=== PATIENT | female | born 1995 | race American Indian/Alaskan Native ===

== ENCOUNTER 2019-09-09 02:03 | Inpatient (IN) | payer MEDICAID ==
[2019-09-09] MEDS ORDERED: fentaNYL 100 MCG/2 ML INJ IV PRN (03:16)
[2019-09-09] MEDS ORDERED: TERBUTALINE 1 MG/1 ML INJ SUB-Q PRN (03:16)
[2019-09-09] MEDS ORDERED: TERBUTALINE 1 MG/1 ML INJ IVP PRN (03:16)
[2019-09-09] MEDS ORDERED: ePHEDrine SULFATE 50 MG/1 ML INJ IV PRN ×2 (03:16→08:36)
[2019-09-09] MEDS ORDERED: LIDOCAINE (2%) 20 MG/1 ML VIAL 20 ML MDV INFILTRATI ONE (03:16)
[2019-09-09] MEDS ORDERED: BUTORPHANOL 2 MG/1 ML INJ IV PRN (03:16)
[2019-09-09] MEDS ORDERED: OXYTOCIN 20 UNIT/1000ML DRIP 20 UNITS/1,000 ML BAG IV SCH (04:00)
[2019-09-09] MEDS ORDERED: OXYTOCIN DRIP 30 UNITS/500 ML BAG IV SCH (04:00)
[2019-09-09 04:27] LABS: Hematocrit 34.1 % (30.3-42.9); Hemoglobin 11.3 gm/dl (10.1-14.3); Mean Corpuscular HGB Conc 33 % (30-34); Mean Corpuscular Volume 74 fl (79-97); Platelet Count 203 K/mm3 (140-440); Red Blood Count 4.62 M/mm3 (3.65-5.03); Red Cell Distribution Width 17.3 % (13.2-15.2)
[2019-09-09] MEDS: LACTATED RINGERS 1,000 ML IV SCH ×2 (04:28→12:56)
[2019-09-09] MEDS ORDERED: NALOXONE 2 MG/2 ML INJ IV PRN (08:36)
--- NOTE | 2019-09-09 08:37 | Anesthesia Consultation ---
Anesthesia Consult and Med Hx Date of service: 09/09/19 - Airway Anesthetic Teeth Evaluation: Good ROM Head & Neck: Adequate Mental/Hyoid Distance: Adequate Mallampati Class: Class II Intubation Access Assessment: Probably Good - Pulmonary Exam CTA: Yes - Cardiac Exam Cardiac Exam: RRR - Pre-Operative Health Status ASA Pre-Surgery Classification: ASA2 Proposed Anesthetic Plan: Epidural - Pulmonary Hx Asthma: Yes COPD: No Hx Pneumonia: No - Cardiovascular System Hx Hypertension: No - Central Nervous System Hx Seizures: No Hx Psychiatric Problems: No - Endocrine Hx Renal Disease: No Hx End Stage Renal Disease: No Hx Hypothyroidism: No Hx Hyperthyroidism: No - Hematic Hx Anemia: No Hx Sickle Cell Disease: No - Other Systems Hx Alcohol Use: No
--- NOTE | 2019-09-09 08:38 | Progress Note ---
Labor Epidural - Labor Epidural Start Time: 08:26 Stop Time: :29 Performed by:: LINK EL Procedure: Patient is requesting epidural for labor pain. H&P, and labs reviewed. Procedure explained, questions answered, consent obtained. Patient in sitting position with blood pressure cuff and pulse ox on and working. Timeout performed immediately before start of procedure. Sterile betadine prep/drape. 3 mL 1% lidocaine skin wheal at L[3]-L[4]. 18-gauge Touhy epidural needle advanced to [id number] with saline at 5 cm. 27-gauge spinal needle advanced until clear, free-flowing CSF. Intrathecal dexmedetomidine [10] mcg administered and needle removed. Epidural catheter advanced to 10 cm, negative aspiration for blood and csf, negative test dose 3 ml 1.5% lidocaine with epinephrine. Sterile steri-strips and tegaderm applied, followed by tape reinforcement. Patient tolerated procedure well.
[2019-09-09] MEDS ORDERED: fentaNYL-BUPIV 2 MCG/ML-0.125% 200 MCG/100 ML BAG EPIDURAL SCH (09:00)
--- NOTE | 2019-09-09 10:26 | History and Physical Report ---
History of Present Illness Date of examination: 09/09/19 Date of admission: 09/09/19 03:16 Chief complaint: My water broke at 12:00AM this morning History of present illness: Early entry to care at [facility], course complicated by +Chlamydia (treated), Anemia (taking FeSO4), hx of Hep. C (co-managed with Dr. Jensen: antibody false positive results); hx of cardiac murmur (evaluated by Cardiology); also co-managed with [facility]; RH Negative (Rhogam on 07/01/2019); +influenza (04/30/2019: Tamiflu). Past History Past Medical History: heart disease (cardiac murmur) [employer] History: chlamydia, hepatitis C Family/Genetic History: diabetes Social history: no significant social history, single - Obstetrical History Expected Date of Delivery: 09/04/19 Actual Gestation: 40 Week(s) 5 Day(s) : 2 Spontaneous Abortions: 1 Medications and Allergies Allergies Allergy/AdvReac Type Severity Reaction Status Date / Time No Known Allergies Allergy Unverified 09/09/19 03:16 Active Meds: Active Medications Butorphanol Tartrate (Stadol) 2 mg IV Q2H PRN PRN Reason: Pain , Severe (7-10) Last Admin: 09/09/19 03:57 Dose: 2 mg Documented by: Ephedrine Sulfate (Ephedrine Sulfate) 10 mg IV Q2M PRN PRN Reason: Hypotension Fentanyl (Sublimaze) 100 mcg IV Q2H PRN PRN Reason: Pain,Severe (7-10) LABOR PAIN Last Admin: 09/09/19 06:14 Dose: 100 mcg Documented by: Oxytocin/Sodium Chloride (Pitocin/Ns 20 Unit/1000ml Drip) 20 units in 1,000 mls @ 125 mls/hr IV DIRECT VERO Oxytocin/Sodium Chloride (Pitocin/Ns 30 Unit/500ml) 30 units in 500 mls @ 1 mls/hr IV TITR VERO; Protocol Last Titration: 09/09/19 08:45 Dose: 0 ml/hr, 0 mls/hr Documented by: Lactated Ringer's (Lactated Ringers) 1,000 mls @ 125 mls/hr IV DIRECT VERO Last Admin: 09/09/19 04:28 Dose: 125 mls/hr Documented by: Fentanyl/Bupivacaine/Sodium Chlor (Fentanyl-Bupiv 2 Mcg/Ml-0.125%) 200 mcg in 100 mls @ 12 mls/hr EPIDURAL TITR VERO; Protocol Last Admin: 09/09/19 09:55 Dose: 12 mls/hr Documented by: Mineral Oil (Mineral Oil) 30 ml PO QHS PRN PRN Reason: Constipation Naloxone HCl (Naloxone) 0.2 mg IV Q5M PRN PRN Reason: Respiratory sedation Terbutaline Sulfate (Brethine) 0.25 mg SUB-Q ONCE PRN PRN Reason: Hyperstimulation/Hypertonicity Terbutaline Sulfate (Brethine) 0.25 mg IVP ONCE PRN PRN Reason: Hyperstimulation/Hypertonicity Review of Systems All systems: negative - Vital Signs Vital signs: Vital Signs Pulse BP 95 H 118/56 09/09/19 04:41 09/09/19 04:41 Temp Pulse Resp BP Pulse Ox 97.8 F 89 18 113/55 100 09/09/19 07:00 09/09/19 10:14 09/09/19 05:03 09/09/19 10:09 09/09/19 10:14 - Physical Exam Breasts: Positive: normal Cardiovascular: Regular rate Lungs: Positive: Clear to auscultation, Normal air movement Abdomen: Positive: normal appearance, soft, normal bowel sounds Genitourinary (Female): Positive: normal external genitalia, normal perenium Vagina: Positive: other (Leaking fluid) Uterus: Positive: enlarged Anus/Rectum: Positive: normal perianal skin - Obstetrical FHR: category 1 FHR comments: FHR: 146, decreased varability, -accels, -decels Uterine Contraction Monitor Mode: Internal Cervical Dilatation: 6 (vtx, leaking a moderate amount of thin meconium stained fluids) Cervical Effacement Percentage: 70 station: -2 Uterine Contraction Frequency (min): 3-5 Uterine Contraction Pattern: Regular Uterine Tone Measurement Phase: Resting Uterine Contraction Intensity: Moderate Results Result Diagrams: 09/09/19 03:36 Abnormal lab results 09/09/19 Range/Units 03:36 MCV 74 L (79-97) fl MCH 25 L (28-32) pg RDW 17.3 H (13.2-15.2) % All other labs normal. Assessment and Plan A: IUP @ 40 5/7 Weeks Category I Tracing SROM Hx of Hep. C Meconium Stained Fluids GBS Negative P: Admit to L&D per Routine Orders Internals x 2 Placed Re-start Pitocin Augmentation when FHTs become more reactive Multiple Maternal Position Changes
[2019-09-09] MEDS: MINERAL OIL 30 ML ORAL LIQD PO PRN ×2 (14:53→16:52)
--- NOTE | 2019-09-09 16:02 | Procedure Note ---
OB Delivery Note - Delivery Date of Delivery: 09/09/19 (1524) Surgeon: JOSE MANUEL OCHOA Estimated blood loss: 300cc - Vaginal Delivery presentation: vertex Delivery position: OA Intrapartum events: meconium Delivery induction: oxytocin Delivery augmentation: pitocin Delivery monitor: internal FHT, internal uterine Route of delivery: Delivery placenta: spontaneous Delivery cord: 3 umbilical vessels Episiotomy: none Delivery laceration: 2nd degree Delivery repair: vicryl Anesthesia: epidural Delivery comments: of a live 7'10 female over a 2nd degree perineal laceration under epidural anesthesia with Apgars 8 and 9 at 1524 on 09/09/2019. Cord double clamped and cut by CASEY Ochoa, Infant not stimulated and handed directly to awaiting NICU/Resp team due to meconium stained fluids. Spontaneous delivery of placenta complete and intact with James side presenting at 1529. Fundus is f irm and midline located 5 below the U. Lochia is scant. 2nd degree laceration repaired with 3-[address]-1. Cord blood collected. Placenta to pathology. - A at 1 minute: 8 at 5 minutes: 9 Infant Gender: Female (7'10)
[2019-09-09] MEDS ORDERED: WITCH HAZEL/ GLYCERIN PAD TP PRN (16:03)
[2019-09-09] MEDS ORDERED: PROMETHAZINE 25 MG TAB PO PRN (16:03)
[2019-09-09] MEDS ORDERED: MAGNESIUM HYDROXIDE (MOM) ORAL LIQD UDC PO PRN (16:03)
[2019-09-09] MEDS ORDERED: diphenhydrAMINE 25 MG CAP PO PRN (16:03)
[2019-09-09] MEDS ORDERED: HYDROcodone/ACETAMINOPHEN 5-325 MG TAB PO PRN (16:03)
[2019-09-09] MEDS ORDERED: LANOLIN/ZINC/DIMETHICONE (LANSINOH) 7 GM TP PRN (16:03)
[2019-09-09] MEDS: IBUPROFEN 600 MG TAB PO SCH ×2 (18:42→23:48)
[2019-09-10] MEDS: IBUPROFEN 600 MG TAB PO SCH ×2 (05:42→17:28)
[2019-09-10 05:44] LABS: Hematocrit 28.7 % (30.3-42.9); Hemoglobin 9.3 gm/dl (10.1-14.3)
--- NOTE | 2019-09-10 08:29 | Progress Note ---
Assessment and Plan A: PP Day #1 Asymptomatic Anemia P: Follow Routine Orders FeSO4 325mg PO BID D/C Home today per patient request RTO in 6 Weeks Subjective - Subjective Date of service: 09/10/19 Interval history: Early entry to care at [facility], course complicated by +Chlamydia (treated), Anemia (taking FeSO4), hx of Hep. C (co-managed with Dr. Jensen: antibody false positive results); hx of cardiac murmur (evaluated by Cardiology); also co-managed with [facility]; RH Negative (Rhogam on 07/01/2019); +influenza (04/30/2019: Tamiflu). Patient reports: appetite normal, voiding normally, pain well controlled, flatus, ambulating normally : doing well Objective - Vital Signs Latest vital signs: Vital Signs Temp Pulse Resp BP Pulse Ox 09/10/19 05:42 18 09/09/19 23:48 18 09/09/19 20:30 98.2 F 124 H 20 121/75 98 09/09/19 16:08 118 H 127/71 09/09/19 16:04 122 H 100 09/09/19 15:59 115 H 100 09/09/19 15:54 122 H 100 09/09/19 15:49 107 H 100 09/09/19 15:44 103 H 100 09/09/19 15:39 129 H 100 09/09/19 15:36 98.1 F 09/09/19 15:34 107 H 99 09/09/19 15:29 114 H 99 09/09/19 15:24 145 H 100 09/09/19 15:19 124 H 99 09/09/19 15:14 131 H 100 09/09/19 15:10 125 H 132/61 09/09/19 15:09 119 H 100 09/09/19 15:04 123 H 100 09/09/19 14:59 168 H 100 09/09/19 14:58 117 H 152/76 09/09/19 14:54 149 H 100 09/09/19 14:49 107 H 100 09/09/19 14:44 102 H 100 09/09/19 14:39 91 H 100 09/09/19 14:34 112 H 100 09/09/19 14:29 123 H 100 09/09/19 14:24 126 H 100 09/09/19 14:19 121 H 100 09/09/19 14:14 93 H 100 09/09/19 14:10 112 H 119/67 09/09/19 14:09 98 H 100 09/09/19 14:04 96 H 100 09/09/19 13:59 107 H 100 09/09/19 13:54 98 H 100 09/09/19 13:49 117 H 100 09/09/19 13:44 93 H 100 09/09/19 13:39 99 H 100 09/09/19 13:34 97 H 100 09/09/19 13:29 94 H 100 09/09/19 13:24 101 H 100 09/09/19 13:19 101 H 100 09/09/19 13:14 95 H 100 09/09/19 13:09 98 H 114/67 100 09/09/19 13:04 97 H 100 09/09/19 12:59 95 H 100 09/09/19 12:54 98 H 100 09/09/19 12:53 95 H 91 09/09/19 12:49 87 100 09/09/19 12:47 98.8 F 20 09/09/19 12:44 83 100 09/09/19 12:39 94 H 100 09/09/19 12:34 87 100 09/09/19 12:29 93 H 100 09/09/19 12:24 86 100 09/09/19 12:19 84 100 09/09/19 12:14 83 100 09/09/19 12:09 83 100 09/09/19 12:08 80 105/55 09/09/19 12:04 105 H 100 09/09/19 12:01 87 79 L 09/09/19 11:59 91 H 99 09/09/19 11:54 90 100 09/09/19 11:49 79 100 09/09/19 11:44 84 100 09/09/19 11:39 86 100 09/09/19 11:34 85 99 09/09/19 11:29 78 98 09/09/19 11:24 79 99 09/09/19 11:19 89 99 09/09/19 11:14 94 H 98 09/09/19 11:09 81 96/52 99 09/09/19 11:04 81 99 09/09/19 10:59 81 99 09/09/19 10:54 78 99 09/09/19 10:49 83 99 09/09/19 10:44 85 99 09/09/19 10:39 93 H 99 09/09/19 10:34 100 H 100 09/09/19 10:29 87 100 09/09/19 10:24 88 100 09/09/19 10:19 89 100 09/09/19 10:14 89 100 09/09/19 10:09 102 H 113/55 100 09/09/19 10:04 94 H 100 09/09/19 10:00 98.1 F 14 99 09/09/19 09:59 94 H 100 09/09/19 09:54 91 H 100 09/09/19 09:49 93 H 100 09/09/19 09:44 86 100 09/09/19 09:39 89 99 09/09/19 09:34 104 H 100 09/09/19 09:29 100 H 97 09/09/19 09:24 112 H 97 09/09/19 09:19 95 H 97 09/09/19 09:14 96 H 98 09/09/19 09:09 90 98 09/09/19 09:08 100 H 115/59 09/09/19 09:04 103 H 99 09/09/19 09:03 101 H 101/55 09/09/19 08:59 105 H 100 09/09/19 08:57 103 H 93/47 09/09/19 08:54 104 H 95/50 98 09/09/19 08:49 110 H 95/50 98 09/09/19 08:44 113 H 85/43 97 09/09/19 08:39 106 H 114/52 99 09/09/19 08:34 103 H 99 09/09/19 08:32 107 H 130/71 09/09/19 08:31 102 H 124/67 09/09/19 08:29 109 H 98 09/09/19 08:24 115 H 99 Intake and Output 09/09/19 09/10/19 09/10/19 22:59 06:59 14:59 Intake Total 26.333 240 Output Total 450 1500 Balance -423.735 -8607 Intake: IV 26.333 PITOCin/NS 20 UNIT/1000ML 4.167 DRIP 20 units In 1,000 ml @ 125 mls/hr IV DIRECT VERO Rx#:[id number] PITOCin/NS 30 UNIT/500ML 22.166 30 units In 500 ml @ 1 mls/hr IV TITR VERO Rx#: [id number] Oral 240 Output: Urine 450 1500 Indwelling Catheter 450 900 Void 600 Other: Total, Intake Amount 240 Total, Output Amount 450 600 # Voids Indwelling Catheter 1 1 Void 3 Estimated Blood Loss 300 - Exam Breasts: Present: normal, mass Lungs: Present: Clear to auscultation, Normal air movement Abdomen: Present: normal appearance, soft, normal bowel sounds Uterus: Present: normal, firm, fundal height below umbilicus Extremities: Present: normal - Labs Labs: Abnormal lab results 09/10/19 Range/Units 04:51 Hgb 9.3 L (10.1-14.3) gm/dl Hct 28.7 L (30.3-42.9) %
--- NOTE | 2019-09-10 08:30 | Discharge Summary ---
Providers - Providers Date of Admission: 09/09/19 03:16 Date of discharge: 09/10/19 Attending physician: DEMARCUS CHI MD Primary care physician: DEMARCUS CHI MD Hospitalization Reason for admission: induction of labor Delivery: Episiotomy: none Laceration: 2nd degree Other procedures: none complications: none Discharge diagnosis: IUP at term delivered baby: female Condition at discharge: Good Disposition: DC-01 TO HOME OR SELFCARE Plan - Provider Discharge Summary Activity: routine, no sex for 6 weeks, no heavy lifting 4 weeks, no strenuous exercise Diet: routine Instructions: routine Additional instructions: [] Smoking cessation referral if applicable(refer to patient education folder for contact #) [] Refer to [facility]'s [facility] Center Booklet Call your doctor immediately for: * Fever > 100.5 * Heavy vaginal bleeding ( >1 pad per hour) * Severe persistent headache * Shortness of breath * Reddened, hot, painful area to leg or breast * Drainage or odor from incision. * Keep incision clean and dry at all times and follow doctor's instructions regarding bathing/showering - Follow up plan Follow up: DEMARCUS CHI MD [Primary Care Provider] - 6 Weeks
[2019-09-10] MEDS ORDERED: FERROUS SULFATE 325 MG TAB PO SCH (10:00)
[2019-09-10 17:12] VITALS: BP 117/52
--- NOTE | 2019-09-10 19:39 | Post Anesthesia Evaluation ---
- Post Anesthesia Evaluation Patient Participated: Yes Airway Patent: Yes Stable Respiratory Function: Yes Nausea/Vomiting: No Temp > 96.8F: Yes Pain Manageable: Yes Adequeate Hydration: Yes Anesthesia Complications: No Block Receding Appropriately: Yes
== END 2019-09-10 20:00 | disposition home or self-care (01) | DRG 775 ==
LOC: TRG 02:03 → APU 02:07 → LD 02:31 → TRG 03:16 → LD 03:16 → OB 18:02
PROVIDERS: ADMIT Obstetrics & Gynecology; ATTEND Obstetrics & Gynecology
PROC: 10E0XZZ Delivery of Products of Conception, External Approach (ICD-10-PCS; principal; 2019-09-09)
PROC: 0KQM0ZZ Repair Perineum Muscle, Open Approach (ICD-10-PCS; 2019-09-09)
PROC: 3E033VJ Introduction of Other Hormone into Peripheral Vein, Percutaneous Approach (ICD-10-PCS; 2019-09-09)
PROC: 3E0R3BZ Introduction of Anesthetic Agent into Spinal Canal, Percutaneous Approach (ICD-10-PCS; 2019-09-09)
PROC: 00HU33Z Insertion of Infusion Device into Spinal Canal, Percutaneous Approach (ICD-10-PCS; 2019-09-09)
DX: O77.0 Labor and delivery complicated by meconium in amniotic fluid (principal); O99.02 Anemia complicating childbirth; O99.52 Diseases of the respiratory system complicating childbirth; J45.909 Unspecified asthma, uncomplicated; O70.1 Second degree perineal laceration during delivery; Z3A.40 40 weeks gestation of pregnancy; Z37.0 Single live birth; Z83.3 Family history of diabetes mellitus
CPT/HCPCS: 36415; 85014; 85018; 85027; 86850; 86870; 86900; 86901; 87517; 88307; G0378; J0595; J2590; J3010; J7120